=== PATIENT | male | born 1985 | race Caucasian/White ===

== ENCOUNTER 2019-01-02 16:41 | Emergency (ER) | payer MEDICAID ==
[2019-01-02] MEDS: KETOROLAC 60 MG INJ IM (18:51)
== END 2019-01-02 19:55 | disposition home or self-care (01) ==
LOC: FTE 16:41
DX: M54.6 Pain in thoracic spine (principal); R00.2 Palpitations
CPT/HCPCS: 71045; 93005; 96372; 99284-25

== ENCOUNTER 2019-03-25 16:07 | Emergency (ER) | payer SELFPAY, MEDICAID | END 2019-03-25 16:37 | disposition home or self-care (01) | LOC: E/R 16:07 | DX: F41.9 Anxiety disorder, unspecified (principal); R51 Headache; R42 Dizziness and giddiness; R11.0 Nausea; R25.1 Tremor, unspecified; Z63.8 Other specified problems related to primary support group | CPT/HCPCS: 99283 ==